=== PATIENT | male | born 1940 | race Caucasian/White ===

== ENCOUNTER 2017-02-05 19:30 | Inpatient (IN) | payer OTHER ==
[~2017-02-05] VITALS: Ht 188 cm; Wt 83.0 kg
[~2017-02-05 19:30] MED LIST: ADVIL200 M1 PO; AMBIEN10 MG PO; AMBIEN5 MG PO; BENADRYL25 MG PO; EXJADE500 MG PO; VITAMIN D5000 UNIT PO; ZYRTEC10 M2 PO
[2017-02-05 20:33] LABS: HEMATOCRIT 22.2 % (38.0-50.0); PLATELET COUNT 73 K/uL (156-360); RBC DIS.WIDTH-CV 21.2 % (11.8-14.6); RBC DIS.WIDTH-SD 75.7 % (39-53); RED BLOOD COUNT 2.22 M/uL (4.00-5.50)
[2017-02-05 20:34] LABS: EOSINOPHIL (%) 0.3 % (0-5); IMMATURE GRANULOCYTE (%) 1.5 % (0.0-0.7); IMMATURE GRANULOCYTE COUNT 0.1 K/uL; LYMPHOCYTE COUNT 0.9 K/uL (1.0-2.8); MONOCYTE (%) 11.5 % (3-12); MONOCYTE COUNT 0.4 K/uL (0-0.8); NEUTROPHIL (%) 60.1 % (45-76)
[2017-02-05 20:35] LABS: MEAN PLAT.VOLUME 14.5 uM^3 (9.0-12.4); WHITE BLOOD COUNT 3.4 K/uL (4.1-10.2)
[2017-02-05 20:42] LABS: CHLORIDE 102 mEq/L (99-109); POTASSIUM 4.4 mEq/L (3.7-5.4); SODIUM 135 mEq/L (136-147)
[2017-02-05 20:44] LABS: GLUCOSE 130 mg/dL (70-99)
[2017-02-05 20:45] LABS: ANION GAP 11 MEQ/L (2-14)
[2017-02-05 20:48] LABS: GFR ESTIMATE (CALCULATED) 39 mL/min/
[2017-02-05 20:49] LABS: UREA NITROGEN (BUN) 27 mg/dL (9-23)
[2017-02-05] MEDS ORDERED: AZITHROMYCIN250 MG PO (21:25)
[2017-02-05 21:46] LABS: ADD MIUA? YES; BILIRUBIN NEGATIVE; BLOOD MODERATE; COLOR YELLOW ((YELLOW)); GLUCOSE (STRIP) NEGATIVE; KETONES NEGATIVE; LEUKOCYTES NEGATIVE; NITRITE NEGATIVE; PROTEIN (STRIP) 30; SPECIFIC GRAVITY 1.015 (1.000-1.030); UROBILINOGEN 0.2 MG/DL (0.2-1.0)
[2017-02-05 22:02] LABS: BACTERIA 3+ /HPF; EPITHELIAL CELLS RARE /HPF; MUCUS NONE SEEN /LPF; RED BLOOD CELLS 20-30 /HPF (0-5); UCUL ADDED? NO; WHITE BLOOD CELLS 0-5 /HPF (0-5)
[2017-02-05 22:03] LABS: AMORPHOUS URATES CRYSTALS 2+; CASTS PRESENT /LPF; COARSE GRANULAR CASTS 0-5 /LPF; CRYSTALS PRESENT; FINE GRANULAR CASTS 0-5 /LPF
[2017-02-05 22:08] LABS: INFLUENZA A VIRAL ANTIGEN NEGATIVE; INFLUENZA B VIRAL ANTIGEN POSITIVE
[2017-02-06 01:11] VITALS: BP 120/57
[2017-02-06 07:51] VITALS: BP 130/57
[2017-02-06 11:42] VITALS: BP 124/57
[2017-02-06 16:01] VITALS: BP 119/52
[2017-02-06 18:20] LABS: HEMATOCRIT 17.5 % (38.0-50.0); MCV 103.6 FL (86-99)
[2017-02-06 23:19] VITALS: BP 156/67
[2017-02-07] VITALS (8 sets, daily range): BP systolic 115–137; BP diastolic 56–78
[2017-02-07 06:22] LABS: HEMATOCRIT 15.7 % (38.0-50.0); MCH 32.5 PG (29.0-34.0); MCHC 31.2 G/DL (30.0-36.0); RBC DIS.WIDTH-SD 76.1 % (39-53); RED BLOOD COUNT 1.51 M/uL (4.00-5.50); WHITE BLOOD COUNT 1.6 K/uL (4.1-10.2)
[2017-02-07 06:23] LABS: ANION GAP 8 MEQ/L (2-14); CHLORIDE 111 MEQ/L (99-109); GFR ESTIMATE (CALCULATED) 57 mL/min/; POTASSIUM 3.8 MEQ/L (3.7-5.4); SAMPLE HEMOLYSIS CHECK 0; SAMPLE ICTERIC CHECK 0; SAMPLE LIPEMIA CHECK 0; SODIUM 140 MEQ/L (136-147); UREA NITROGEN (BUN) 17 mg/dL (9-23)
[2017-02-07 06:29] LABS: GLUCOSE 93 mg/dL (70-99)
[2017-02-07 07:00] LABS: IMM.PLATELET FRACTION 10.1 (1-7); MEAN PLAT.VOLUME 12.9 uM^3 (9.0-12.4)
[2017-02-07 07:05] LABS: PLATELET COUNT 41 K/uL (156-360)
[2017-02-07 07:06] LABS: PLAT.SUFFICIENCY VERY DECREASED
[2017-02-07 22:03] LABS: ABS NEUTROPHIL COUNT 1.1; ANISOCYTOSIS 1+; EOSINOPHIL ABS CT 0; OVALOCYTES 1+
[2017-02-08 00:08] VITALS: BP 146/76
[2017-02-08 08:30] VITALS: BP 138/62
[2017-02-08 10:04] LABS: HEMATOCRIT 21.4 % (38.0-50.0); MCH 31.8 PG (29.0-34.0); MCHC 31.3 G/DL (30.0-36.0); MCV 101.4 FL (86-99); RBC DIS.WIDTH-CV 19.9 % (11.8-14.6); RBC DIS.WIDTH-SD 72.2 % (39-53)
[2017-02-08 10:08] LABS: RED BLOOD COUNT 2.11 M/uL (4.00-5.50); WHITE BLOOD COUNT 1.5 K/uL (4.1-10.2)
[2017-02-08 10:30] LABS: ANION GAP 9 MEQ/L (2-14); CHLORIDE 108 MEQ/L (99-109); GFR ESTIMATE (CALCULATED) > 59 mL/min/; GLUCOSE 134 mg/dL (70-99); POTASSIUM 3.9 MEQ/L (3.7-5.4); SAMPLE HEMOLYSIS CHECK 0; SAMPLE ICTERIC CHECK 0; SAMPLE LIPEMIA CHECK 0; SODIUM 140 MEQ/L (136-147); UREA NITROGEN (BUN) 14 mg/dL (9-23)
[2017-02-08 11:20] LABS: ABS NEUTROPHIL COUNT 0.9; ANISOCYTOSIS 1+; ATYPICAL LYMPHOCYTE 3.8 %; BAND NEUTROPHILS 5.1 % (0-8.0); EOSINOPHIL ABS CT 0; EOSINOPHILS 1.3 % (0-5.0); IMM.PLATELET FRACTION 9.4 (1-7); INSTRUMENT ABS NEUTROPHIL CT 0.7 K/uL; LYMPHOCYTES 29.1 % (15.0-45.0); MACROCYTES 1+; MEAN PLAT.VOLUME 12.2 uM^3 (9.0-12.4); MYELOCYTES 1.3 %; PLAT.SUFFICIENCY DECREASED; PLATELET COUNT 50 K/uL (156-360); POIKILOCYTOSIS 2+; SEG.NEUTROPHILS 56.9 % (46.0-76.0)
== END 2017-02-08 11:42 | disposition left against medical advice (07) | DRG 683 ==
LOC: EME → EDBD 19:30 → EDOF 23:50 → 3EAST 23:50
PROVIDERS: Emergency Medicine; Hospitalist; Internal Medicine
PROC: 30233N1 Transfusion of Nonautologous Red Blood Cells into Peripheral Vein, Percutaneous Approach (ICD-10-PCS; principal; 2017-02-07)
DX: N17.9 Acute kidney failure, unspecified (principal); N39.0 Urinary tract infection, site not specified; D61.818 Other pancytopenia; R65.10 Systemic inflammatory response syndrome (SIRS) of non-infectious origin without acute organ dysfunction; J10.1 Influenza due to other identified influenza virus with other respiratory manifestations; D70.9 Neutropenia, unspecified; R50.9 Fever, unspecified; R31.9 Hematuria, unspecified; Z88.0 Allergy status to penicillin; D46.9 Myelodysplastic syndrome, unspecified; D50.9 Iron deficiency anemia, unspecified
CPT/HCPCS: 71020; 76770; 80048; 81003; 83605; 85007; 85014; 85018; 85025; 85027; 86850; 86860; 86870; 86880; 86900; 86901; 86920; 86999; 87040; 87086; 87502; 93005; 99281; 99285; J0696; J1200; J1956; J7030; J7050; P9016